=== PATIENT | female | born 1995 | race Caucasian/White ===

== ENCOUNTER 2016-11-22 02:52 | Inpatient (IN) | payer OTHER ==
[~2016-11-22] VITALS: Ht 165.1 cm; Wt 70.0 kg
[2016-11-22] MEDS ORDERED: OXYTOCIN 30 UNITS IN 0.9% NaCl 500ML IV BAG (J2590) As Ordered ONE (03:21)
[2016-11-22] MEDS ORDERED: OXYTOCIN INJ 10 UNITS/ML VIAL (J2590) As Ordered ONE (03:26)
[2016-11-22 03:49] LABS: CORD GAS ABE A -0.8; CORD GAS ABE V -4.3; CORD GAS HCO3 A 21.1 MEQ/L; CORD GAS HCO3 V 20.4 MEQ/L; CORD GAS O2 SAT V 64.9 %; CORD GAS PCO2 A 27.7 mmHg; CORD GAS PCO2 V 36.3 mmHg; CORD GAS PH A 7.5 UNITS; CORD GAS PH V 7.368 UNITS; CORD GAS PO2 A 54.3 mmHg; CORD GAS SBC A 23.8 MEQ/L; CORD GAS SBC V 20.3 MEQ/L; CORD GAS TCO2 V 21.5 MEQ/L
[2016-11-22] MEDS ORDERED: LR 1,000 ML IV SCH (04:32)
[2016-11-22] MEDS ORDERED: RHOGAM 300 MCG (1500 IU) INJ (J2790) IM SCH (04:45)
[2016-11-22] MEDS ORDERED: DIBUCAINE 1% OINTMENT 30GM TOP PRN (04:45)
[2016-11-22] MEDS ORDERED: METHYLERGONOVINE MALEATE 0.2 MG TAB PO PRN (04:45)
[2016-11-22] MEDS ORDERED: LACTATED RINGER'S 1000 ML IV ONE (04:45)
[2016-11-22] MEDS ORDERED: ANUSOL HC CREAM 30GM TOP PRN (04:45)
[2016-11-22] MEDS ORDERED: MOM 30ML SUSPENSION UDC PO PRN (04:45)
[2016-11-22] MEDS ORDERED: DOCUSATE SODIUM 100 MG CAP PO PRN (04:45)
[2016-11-22] MEDS ORDERED: MEASLES,MUMPS,RUBELLA VACCINE INJ (MMR-II) (90707) SC SCH (04:45)
[2016-11-22] MEDS ORDERED: ACETAMINOPHEN 500 MG TAB PO PRN (04:45)
[2016-11-22] MEDS ORDERED: IBUPROFEN 800 MG TAB PO PRN (04:45)
[2016-11-22 05:03] LABS: AMPHETAMINES LEVEL URINE NEGATIVE (NEGATIVE); BENZODIAZEPINES URINE NEGATIVE (NEGATIVE); COCAINE METABOLITE URINE NEGATIVE (NEGATIVE); CONTROL LINE INT CTR LINE PRESENT; METHADONE URINE NEGATIVE (NEGATIVE); OPIATES URINE NEGATIVE (NEGATIVE); TRICYCLIC ANTIDEPRESS URINE NEGATIVE (NEGATIVE)
[2016-11-22 05:34] LABS: MEAN CORPUSCULAR HEMOGLOBIN 26.3 pg (27.0-33.0); MEAN CORPUSCULAR HGB CONC 33.6 g/dl (32.0-36.5); MEAN CORPUSCULAR VOLUME 78.3 fl (80.0-96.0); RED CELL DISTRIBUTION WIDTH 12.6 % (11.5-14.5); WHITE BLOOD COUNT 13.1 K/mm3 (4.0-10.0)
[2016-11-22 05:54] LABS: ALT/SGPT 18 U/L (12-78); AST/SGOT 14 U/L (15-37); BILIRUBIN,TOTAL 0.2 MG/DL (0.2-1.0); CREATININE FOR GFR 0.45 MG/DL (0.55-1.02); GLOMERULAR FILTRATION RATE > 60.0 (>60); URIC ACID 2.4 MG/DL (2.6-6.0)
[2016-11-22 06:31] LABS: CONTROL LINE INT CTR LINE PRESENT; HIV SCRN NEGATIVE (NEGATIVE); HIV SCRN1 NEGATIVE (NEGATIVE)
[2016-11-22 06:55] VITALS: BP 110/78
--- NOTE | 2016-11-22 08:02 | DN ---
DATE: 11/22/2016 DELIVERY NOTE: This lady came in through emergency in active labor actively bleeding. Her history is that she is at 27 and 3 weeks of gestation. She has recently moved here and apparently has an established care visit on 11/29/2016. She last saw a physician when she was 17 weeks and she has not seen anybody since then, and apparently she is 27 and 2. She is a 3, para 2. Her last baby is [id number] and she is breast-feeding that baby. She came in here with bradycardia and massive bleeding vaginally. On examination, we found vertex presenting, membranes were out and she was having intermittent moderate to severe contractions with bradycardia. IV was started. Routine blood work was obtained. Neonatology was called and we encouraged her to spontaneously pushed this baby out. We had some difficulty with her in that she would not allow us to touch the perineum and she would not allow us to touch her at all. However, she did have a spontaneous vaginal delivery of a live female , score of 8 and 9 at one and five minutes, respectively, Dr. Tobar in attendance for resuscitation, 1072 grams (2 pounds 3 ounces). Arterial pH was 7.5, base excess -0.8, venous pH 7.36, base excess -4.3. The baby was taken along to the intensive care unit. Placenta delivered spontaneously thereafter. Three-vessel cord, membranes and tissues intact. She did have some trailing membranes and we had some extreme difficulty in even getting close to this woman to evaluate her as she refused to let us touch her or even massage her uterus despite our encouraging comments that this is necessary because she was bleeding. She was put on a Methergine series and she had an IV running with Pitocin. In summary, we have a abruptio placenta, 27 and 3, with basically no care, delivered a live female , for further investigation.
[2016-11-22] MEDS: PRENATAL VITAMIN TAB PO SCH (11:12)
[2016-11-22 18:02] VITALS: BP 131/70
[2016-11-23 05:49] VITALS: BP 95/44
--- NOTE | 2016-11-23 06:40 | IPNPDOC ---
Text Note Date of Service The patient was seen on 11/23/16 at 06:39. NOTE PPD1 Prog note States feeling well. No complaints. Pain controlled. Breast feeding well. VB slowing. Ambulatory and voiding well. No N/V/CP/SOB/LP. VSS Ut at U-2/firm LE no CCE a/p: Doing well. Routine PP care, d/c today. Sessions VSPaola, I+O VSPaola I+O Vital Signs Date Time Temp Pulse Resp B/P Pulse Ox O2 Delivery O2 Flow Rate FiO2 11/23/16 05:49 96.5 66 16 95/44 11/22/16 06:55 97 Room Air I&O- Last 24 Hours up to 6 AM 11/23/16 06:00 Output Total 250 ml Balance -250 ml SESSIONS,ANEESH Goetz MD Nov 23, 2016 06:39
--- NOTE | 2016-11-23 06:49 | DS.PDOC ---
Discharge Summary General Date of Admission Nov 22, 2016 at 03:28 Date of Discharge Discharge Summary Date of Discharge [id number] Discharge Summary COMPLICATIONS/CHIEF COMPLAINT: Active labor at ~27 weeks ADMISSION DIAGNOSES: 1. Active labor DISCHARGE DIAGNOSES: 1. Precipitous HOSPITAL COURSE: Patient was admitted at complete dilation without having seen anyone in our group. Dr Alicea had no records/labs/ultrasound reports. She delivered soon after arrival. She had an uncomplicated course thereafter. Female was transferred to [place]. DISCHARGE MEDICATIONS: Motrin, Tylenol, Colace, Lanolin, declined control PHYSICAL EXAMINATION ON DISCHARGE: see prog note from this AM VITAL SIGNS: Please see below. DISCHARGE CONDITION: stable DISPOSITION: to home ACTIVITY: Nothing in the vagina for 6-8 weeks. Regular diet. DISCHARGE PLAN AND INSTRUCTIONS: follow up at 6 week visit Sessions Vital Signs/I&Os Vital Signs Date Time Temp Pulse Resp B/P Pulse Ox O2 Delivery O2 Flow Rate FiO2 11/23/16 05:49 96.5 66 16 95/44 11/22/16 06:55 97 Room Air I&O- Last 24 Hours up to 6 AM 11/23/16 06:00 Output Total 250 ml Balance -250 ml Allergies Coded Allergies: No Known Drug Allergy (Verified Allergy, Unknown, 11/22/16) SESSIONS,ANEESH Goetz MD Nov 23, 2016 06:48
[2016-11-23] MEDS: PRENATAL VITAMIN TAB PO SCH (09:12)
[2016-11-23] MEDS ORDERED: PRENTAB9 PO (10:34)
[2016-11-23] MEDS ORDERED: COLA100C PO (10:39)
[2016-11-23] MEDS ORDERED: TYLE500T78 PO (10:39)
[2016-11-23] MEDS ORDERED: MOTR200T40 PO (10:39)
== END 2016-11-23 14:00 | disposition home or self-care (01) | DRG 774 ==
LOC: M LDO 02:52 → M LDI 03:28 → M OBS 06:52
PROVIDERS: ADMIT Obstetrics & Gynecology; ATTEND Obstetrics & Gynecology
PROC: 10E0XZZ Delivery of Products of Conception, External Approach (ICD-10-PCS; principal; 2016-11-22)
DX: O45.93 Premature separation of placenta, unspecified, third trimester (principal); Z37.0 Single live birth; O62.3 Precipitate labor; Z3A.27 27 weeks gestation of pregnancy; O76 Abnormality in fetal heart rate and rhythm complicating labor and delivery

== ENCOUNTER 2017-03-22 19:40 | Emergency (ER) | payer OTHER ==
[~2017-03-22] VITALS: Ht 165.1 cm; Wt 66.2 kg
[~2017-03-22 19:40] MED LIST: COLA100C3 PO; MOTR200T44 PO; PRENTAB9 PO; TYLE500T78 PO
[2017-03-22] MEDS ORDERED: ZOFR4TAB3 PO (22:11)
[2017-03-22 22:22] VITALS: BP 112/65
[2017-03-25 00:06] LABS: Lyme Disease IgG/IgM Antibodie <0.91 ISR (0.00-0.90); Lyme Disease IgM Ab Quantitati <0.80 index (0.00-0.79)
== END 2017-03-22 22:31 | disposition home or self-care (01) ==
LOC: M ED 22:07
DX: R53.81 Other malaise (principal)

== ENCOUNTER 2017-04-17 10:31 | Emergency (ER) | payer OTHER ==
[~2017-04-17] VITALS: Ht 162.6 cm; Wt 65.8 kg
[~2017-04-17 10:31] MED LIST changes: +ZOFR4TAB3 PO
[2017-04-17] MEDS ORDERED: KETOROLAC 30 MG/ML VIAL (J1885) IV ONE (11:45)
[2017-04-17] MEDS ORDERED: ONDANSETRON 4MG/2ML VIAL (J2405) IV ONE (11:45)
[2017-04-17] MEDS ORDERED: NS 1,000 ML IV ONE (11:45)
[2017-04-17 12:13] LABS: BASO % 0.5 % (0.0-1.0); EOS # 0.1 K/mm3 (0.0-0.50); EOS % 1.4 % (0.0-3.0); LARGE UNSTAINED CELL # 0.1 K/mm3 (0.0-0.4); LYMPH # 1.1 K/mm3 (1.5-6.5); LYMPH % 11.1 % (24.0-44.0); MEAN CORPUSCULAR HEMOGLOBIN 26.3 pg (27.0-33.0); MEAN CORPUSCULAR HGB CONC 32.4 g/dl (32.0-36.5); MEAN CORPUSCULAR VOLUME 81.2 fl (80.0-96.0); MONO # 0.3 K/mm3 (0.0-0.8); MONO % 3.2 % (0.0-5.0); NEUTROPHILS # 8.2 K/mm3 (1.8-7.7); NEUTROPHILS % 82.8 % (36.0-66.0); PLATELET COUNT, AUTOMATED 264 k/mm3 (150-450); RED CELL DISTRIBUTION WIDTH 12.4 % (11.5-14.5); WHITE BLOOD COUNT 9.9 K/mm3 (4.0-10.0)
[2017-04-17] MEDS ORDERED: METOCLOPRAMIDE INJ 10MG/2ML VIAL (J2765) IV ONE (12:15)
[2017-04-17 12:31] LABS: ALBUMIN/GLOBULIN RATIO 0.93 (1.00-1.93); ALKALINE PHOSPHATASE 103 U/L (45-117); ALT/SGPT 23 U/L (12-78); ANION GAP 6 MEQ/L (8-16); AST/SGOT 16 U/L (15-37); BILIRUBIN,TOTAL 0.2 MG/DL (0.2-1.0); BLOOD UREA NITROGEN 12 MG/DL (7-18); CALCIUM LEVEL 9.3 MG/DL (8.5-10.1); CARBON DIOXIDE LEVEL 26 MEQ/L (21-32); CHLORIDE LEVEL 106 MEQ/L (98-107); CREATININE FOR GFR 0.64 MG/DL (0.55-1.02); GLOMERULAR FILTRATION RATE > 60.0 (>60); GLUCOSE, FASTING 98 MG/DL (70-105); POTASSIUM SERUM 3.7 MEQ/L (3.5-5.1); SODIUM LEVEL 138 MEQ/L (136-145); TOTAL PROTEIN 8.3 GM/DL (6.4-8.2)
[2017-04-17] MEDS ORDERED: PERC5TAB6 PO (12:44)
[2017-04-17] MEDS ORDERED: BENT10CA PO (12:44)
[2017-04-17] MEDS ORDERED: ZOFR4TAB3 PO (12:44)
--- NOTE | 2017-04-17 12:48 | REP ---
Abdomen series: Four views. History: Severe abdominal pain. No comparison study. Findings: Upright chest radiograph shows clear well inflated lungs and sharp pleural angles. There is no evidence of infiltrate or free subdiaphragmatic air. Heart is not enlarged. There is a dextroconvex lower thoracic scoliotic curve and a levoconvex lumbar curve. No other bony abnormality is seen. Supine and erect views of the abdomen demonstrate air and some stool in a nondistended colon. No small bowel dilation is seen. No mass, organomegaly, or pathologic calcification is seen. There are phleboliths in the pelvis. Impression: Thoracolumbar scoliosis. Otherwise negative abdominal series. Signed by Mic Cuha MD 04/17/2017 02:53 P
[2017-04-17] MEDS ORDERED: DICYCLOMINE 10 MG CAP PO ONE (13:00)
[2017-04-17] MEDS ORDERED: PERCOCET 5MG/325MG TAB PO ONE (13:00)
[2017-04-17 13:04] VITALS: BP 106/58
== END 2017-04-17 13:11 | disposition home or self-care (01) ==
LOC: M ED 11:37
DX: R10.9 Unspecified abdominal pain (principal); R11.0 Nausea; R19.7 Diarrhea, unspecified; M41.35 Thoracogenic scoliosis, thoracolumbar region
CPT/HCPCS: 74022; 80053; 81001; 81025; 83690; 85025; 96374; 96375; 99283; J1885; J2405; J2765

== ENCOUNTER 2017-12-14 05:10 | Inpatient (IN) | payer OTHER ==
[2017-12-14 06:39] LABS: HEMATOCRIT 38.2 % (36.0-47.0); HEMOGLOBIN 12.5 g/dl (12.0-16.0); MEAN CORPUSCULAR HEMOGLOBIN 25.7 pg (27.0-33.0); MEAN CORPUSCULAR HGB CONC 32.7 g/dl (32.0-36.5); MEAN CORPUSCULAR VOLUME 78.6 fl (80.0-96.0); PLATELET COUNT, AUTOMATED 188 10^3/uL (150-450); RED BLOOD COUNT 4.86 10^6/uL (4.00-5.40); WHITE BLOOD COUNT 10.4 10^3/uL (4.0-10.0)
[2017-12-14] MEDS ORDERED: OXYTOCIN INJ 10 UNITS/ML VIAL (J2590) IM (07:00)
[2017-12-14] MEDS ORDERED: IBUPROFEN 800 MG TAB PO (07:00)
[2017-12-14] MEDS ORDERED: MEASLES,MUMPS,RUBELLA VACCINE INJ (MMR-II) (90707) SC (07:00)
[2017-12-14] MEDS ORDERED: ACETAMINOPHEN TAB 650MG DOSE (2X325MG) PO (07:00)
[2017-12-14] MEDS ORDERED: RHOGAM 300 MCG (1500 IU) INJ (J2790) IM (07:00)
[2017-12-14] MEDS: PRENATAL VITAMINS CHEWABLE TABLET PO (08:33)
[2017-12-14] MEDS: FERROUS SULFATE 325MG TAB PO (08:33)
[2017-12-14] MEDS: DOCUSATE SODIUM 100 MG CAP PO ×2 (08:33→20:12)
[2017-12-15] MEDS: PRENATAL VITAMINS CHEWABLE TABLET PO (08:30)
[2017-12-15] MEDS: FERROUS SULFATE 325MG TAB PO (08:30)
[2017-12-15] MEDS: DOCUSATE SODIUM 100 MG CAP PO ×2 (08:30→21:47)
[2017-12-16] MEDS: PRENATAL VITAMINS CHEWABLE TABLET PO (11:38)
[2017-12-16] MEDS: DOCUSATE SODIUM 100 MG CAP PO (11:38)
[2017-12-16] MEDS: FERROUS SULFATE 325MG TAB PO (11:38)
== END 2017-12-16 14:30 | disposition home or self-care (01) | DRG 775 ==
LOC: M LDI 05:10 → M OBS 08:08
PROVIDERS: Obstetrics & Gynecology
PROC: 10E0XZZ Delivery of Products of Conception, External Approach (ICD-10-PCS; principal; 2017-12-14)
DX: O60.14X0 Preterm labor third trimester with preterm delivery third trimester, not applicable or unspecified (principal); Z37.0 Single live birth; Z3A.34 34 weeks gestation of pregnancy; O62.3 Precipitate labor

== ENCOUNTER → 2018-09-04 | Outpatient (REF) | payer OTHER ==
[2018-09-04 19:56] LABS: CHLAMYDIA DNA AMPLIFICATION NEGATIVE (NEGATIVE); GC DNA AMPLIFICATION NEGATIVE (NEGATIVE)
== END ==
LOC: M SFHCLERA 13:08
DX: R53.81 Other malaise (principal)

== ENCOUNTER 2019-06-13 06:45 | Emergency (ER) | payer OTHER ==
[~2019-06-13] VITALS: Ht 165.1 cm; Wt 57.3 kg
[~2019-06-13 06:45] MED LIST changes: +BENT10CA PO; -COLA100C3 PO; +COLA100C5 PO; +IBUP-1114 PO; +MAPA500T2 PO; +PERC5TAB12 PO; +ZOFR4TAB14 PO; -ZOFR4TAB3 PO
[2019-06-13] MEDS ORDERED: BIOT1CAP2 PO (07:06)
[2019-06-13 07:43] LABS: HEMATOCRIT 40.3 % (36.0-47.0); HEMOGLOBIN 13.1 g/dl (12.0-15.5); MEAN CORPUSCULAR HEMOGLOBIN 26.7 pg (27.0-33.0); MEAN CORPUSCULAR HGB CONC 32.5 g/dl (32.0-36.5); MEAN CORPUSCULAR VOLUME 82.1 fl (80.0-96.0); PLATELET COUNT, AUTOMATED 284 10^3/uL (150-450); RED BLOOD COUNT 4.91 10^6/uL (4.00-5.40); WHITE BLOOD COUNT 10.7 10^3/uL (4.0-10.0)
[2019-06-13 07:57] LABS: APPEARANCE, URINE HAZY (CLEAR); BACTERIA, URINE AUTO NEGATIVE (NEGATIVE); BILIRUBIN, URINE AUTO NEGATIVE (NEGATIVE); BLOOD, URINE BLOOD NEGATIVE (NEGATIVE); COLOR, URINE YELLOW (YELLOW); GLUCOSE, URINE (UA) AUTO NEGATIVE (NEGATIVE); KETONE, URINE AUTO NEGATIVE (NEGATIVE); LEUKOCYTE ESTERASE, URINE AUTO NEGATIVE (NEGATIVE); MUCUS, URINE SMALL (NEGATIVE); NITRITE, URINE AUTO NEGATIVE (NEGATIVE); PROTEIN, URINE AUTO NEGATIVE (NEGATIVE); RBC, URINE AUTO 2 /HPF (0-3); SPECIFIC GRAVITY URINE AUTO 1.021 (1.002-1.035); SQUAMOUS EPITHELIAL CELL UR AU 2 /HPF (0-6); UROBILINOGEN, URINE AUTO 0.2 mg/dL (0.0-2.0); WBC, URINE AUTO 0 /HPF (0-3)
[2019-06-13 08:08] LABS: ALBUMIN 3.7 GM/DL (3.2-5.2); ALT/SGPT 18 U/L (12-78); BILIRUBIN,DIRECT < 0.1 MG/DL (0.0-0.2); BILIRUBIN,TOTAL 0.4 MG/DL (0.2-1.0); BLOOD UREA NITROGEN 9 MG/DL (7-18); CALCIUM LEVEL 8.6 MG/DL (8.5-10.1); CARBON DIOXIDE LEVEL 26 MEQ/L (21-32); CHLORIDE LEVEL 106 MEQ/L (98-107); CREATININE FOR GFR 0.57 MG/DL (0.55-1.30); GLOMERULAR FILTRATION RATE > 60.0 (>60); GLUCOSE, FASTING 72 MG/DL (70-100); LIPASE 151 U/L (73-393); SODIUM LEVEL 139 MEQ/L (136-145); TOTAL PROTEIN 7.6 GM/DL (6.4-8.2)
--- NOTE | 2019-06-13 08:17 | REPVR ---
EXAM: US First Trimester, Transabdominal EXAM DATE/TIME: 06/13/2019 7:51 AM CLINICAL HISTORY: 23 years old, female; complicated by abdominal or pelvic pain; Periumbilical; First trimester; Gestational age or lmp: 11; ; Additional info: Abdominal pain 11 weeks TECHNIQUE: Imaging protocol: Real-time transabdominal obstetrical ultrasound of the maternal pelvis and a first trimester , less than 14 weeks 0 days, with image documentation. COMPARISON: No relevant prior studies available. FINDINGS: GESTATION: Gestation: Single live Intrauterine corresponding to 11 weeks 0 days with MITRA of 01/02/20. pole is identified. Farrell-rump length is 41 mm. Heart rate: 165 beats per minute. Placenta: Small subchorionic hemorrhage measuring 2.8 x 1.0 x 2.3 cm to the left of the gestational sac. Amniotic fluid: Amniotic and chorionic fluid are normal for gestational age. MATERNAL: Uterus: Unremarkable. Cervix: Unremarkable. Right adnexa: Unremarkable. Left adnexa: Unremarkable. Intraperitoneal: No intraperitoneal free fluid. IMPRESSION: Single live Intrauterine corresponding to 11 weeks 0 days with MITRA of 01/02/20. pole is identified. Farrell-rump length is 41 mm. Small subchorionic hemorrhage measuring 2.8 x 1.0 x 2.3 cm to the left of the gestational sac. Electronically signed by: Vonda Dueñas On 06/13/2019 08:16:47 AM
[2019-06-13 09:18] VITALS: BP 98/55
== END 2019-06-13 09:23 | disposition home or self-care (01) ==
LOC: M ED 06:45
DX: O36.8910 Maternal care for other specified fetal problems, first trimester, not applicable or unspecified (principal); O99.511 Diseases of the respiratory system complicating pregnancy, first trimester; J45.909 Unspecified asthma, uncomplicated; Z3A.11 11 weeks gestation of pregnancy; Z79.899 Other long term (current) drug therapy